=== PATIENT | male | born 1945 | race Caucasian/White ===

== ENCOUNTER 2018-12-01 11:01 | Emergency (ER) | payer MEDICARE, OTHER ==
[2018-12-01] MEDS ORDERED: Albuterol/Ipratropium 3.0-0.5 MG/3 ML Neb Soln NEB ONE (11:39)
--- NOTE | 2018-12-01 11:45 | EDM.PDOC ---
ED HPI GENERAL MEDICAL PROBLEM - General Chief Complaint: Respiratory Problem Stated Complaint: BREATHING ISSSUE COUGHING Time Seen by Provider: 12/01/18 11:35 Source of Information: Reports: Patient, Old Records, RN History Limitations: Reports: No Limitations - History of Present Illness INITIAL COMMENTS - FREE TEXT/NARRATIVE: 73 yo male here with a productive cough and mild increase in SOB. Does have COPD. Had a low grade fever earlier, not today. Sputum is colored. Did have all the appropriate vaccines. Onset: Gradual Onset Date: 11/27/18 Duration: Day(s):, Waxing/Waning Location: Reports: Chest Quality: Reports: Other (no pain) Severity: Moderate Improves with: Reports: Rest Worsens with: Reports: Movement (exertion) Context: Reports: Other (See HPI) Associated Symptoms: Reports: Cough, Fever/Chills (better now), Shortness of Breath. 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 Denies: Pleuritic Chest Pain, Hemoptysis Cardiovascular: Reports: No Symptoms Endocrine: Reports: No Symptoms GI/Abdominal: Reports: No Symptoms : Reports: No Symptoms Musculoskeletal: Reports: No Symptoms Skin: Reports: No Symptoms Neurological: Reports: No Symptoms Psychiatric: Reports: No Symptoms ED EXAM, GENERAL - Physical Exam Exam: See Below Exam Limited By: No Limitations General Appearance: Alert, WD/WN, No Apparent Distress Eye Exam: Bilateral Eye: Normal Inspection Ears: Normal External Exam, Normal Canal, Hearing Grossly Normal, Normal TMs Ear Exam: Bilateral Ear: Auricle Normal, Canal Normal, TM normal Nose: Normal Inspection, Normal Mucosa, No Blood Throat/Mouth: Normal Inspection, Normal Lips, Normal Teeth, Normal Oropharynx, Normal Voice Head: Atraumatic, Normocephalic Neck: Normal Inspection, Supple, Non-Tender Respiratory/Chest: No Respiratory Distress, No Accessory Muscle Use, Decreased Breath Sounds, Rhonchi, Wheezing Cardiovascular: Regular Rate, Rhythm, No Edema Back Exam: Normal Inspection Extremities: Normal Inspection, Normal Range of Motion, Non-Tender, No Pedal Edema Neurological: Alert, Oriented, CN II-XII Intact, Normal Cognition, No Motor/ Sensory Deficits Psychiatric: Normal Affect, Normal Mood Skin Exam: Warm, Dry, Intact, Normal Color, No Rash Course - Vital Signs Text/Narrative:: Minimal improvement with Duoneb Last Recorded V/S: Last Vital Signs Temp 36.8 C 12/01/18 11:30 Pulse 115 H 12/01/18 11:30 Resp 12 12/01/18 11:30 BP 123/73 12/01/18 11:30 Pulse Ox 96 12/01/18 11:30 - Orders/Labs/Meds Orders: Active Orders 24 hr Category Date Time Status RT Aerosol Therapy [RC] ASDIRECTED Care 12/01/18 11:39 Active Chest 2V [CR] Stat Exams 12/01/18 11:39 Taken Labs: Laboratory Tests 12/01/18 12/01/18 Range/Units 11:49 11:49 WBC 6.1 (4.5-11.0) K/uL RBC 3.98 L (4.30-5.90) M/uL Hgb 13.0 (12.0-15.0) g/dL Hct 36.4 L (40.0-54.0) % MCV 92 (80-98) fL MCH 33 H (27-31) pg MCHC 36 (32-36) % Plt Count 190 (150-400) K/uL Lactic Acid 1.8 (0.4-2.0) mmol/L Meds: Medications Discontinued Medications Generic Name Dose Route Start Last Admin Trade Name Freq PRN Reason Stop Dose Admin Albuterol/Ipratropium 3 ml 12/01/18 11:39 12/01/18 11:53 Duoneb 3.0-0.5 Mg/3 Ml NEB 12/01/18 11:40 3 ml ONETIME ONE Administration - Radiology Interpretation Free Text/Narrative:: CXR-emphysema Departure - Departure Time of Disposition: 12:20 Disposition: Home, Self-Care 01 Condition: Fair Clinical Impression: Bronchospasm, Bronchitis - Discharge Information *PRESCRIPTION DRUG MONITORING PROGRAM REVIEWED*: No *COPY OF PRESCRIPTION DRUG MONITORING REPORT IN PATIENT TORIE: No Instructions: Bronchospasm, Adult, [id number], Acute Bronchitis, Adult, Easy- to-Read Referrals: Junior Hollins MD [Primary Care Provider] - Forms: ED Department Discharge Additional Instructions: Take azithromycin as directed until gone, this med will remain in your system for 10 days. Take acetaminophen as needed for fever control. Take prednisone as directed until gone. See your provider for recheck in a few days. Return if worse. - My Orders Last 24 Hours: My Active Orders 12/01/18 11:39 RT Aerosol Therapy [RC] ASDIRECTED Chest 2V [CR] Stat - Assessment/Plan Last 24 Hours: My Active Orders 12/01/18 11:39 RT Aerosol Therapy [RC] ASDIRECTED Chest 2V [CR] Stat
--- NOTE | 2018-12-01 12:28 | CRLCR ---
Indication: Cough. Shortness of breath. Technique: PA and lateral views the chest were obtained. Comparison: January 11, 2014. Findings: The heart is normal in size. The lungs are hyperinflated. No infiltrate, pleural effusion, or pneumothorax is identified. Impression: Hyperinflation. Dictated by Joana Esteban MD @ Dec 01 2018 12:25PM Signed by Dr. Joana Esteban @ Dec 01 2018 12:25PM
== END 2018-12-01 12:50 | disposition home or self-care (01) ==
LOC: JP.ED 11:01
DX: J40 Bronchitis, not specified as acute or chronic (principal); Z79.899 Other long term (current) drug therapy
CPT/HCPCS: 36415; 71046; 83605; 85027; 94640; 99284-25; J7620-GY

== ENCOUNTER 2019-10-21 09:18 | Inpatient (IN) | payer MEDICARE ==
[2019-10-21] MEDS ORDERED: Sodium Chloride 0.9% 1,000 ML IV SCH (09:45)
[2019-10-21] MEDS ORDERED: Midazolam 1 MG/ML 2 ML SDV ONE (10:40)
[2019-10-21] MEDS ORDERED: fentaNYL 100 MCG/2 ML SDV ONE (10:40)
[2019-10-21] MEDS ORDERED: Propofol 200 MG/20 ML SDV ONE ×2 (10:41→12:21)
--- NOTE | 2019-10-21 14:04 | PCM.HP.2 ---
H&P History of Present Illness - General Date of Service: 10/21/19 Admit Problem/Dx: Admission Diagnosis/Problem Admission Diagnosis/Problem Mass Source of Information: Patient, Family, RN Notes Reviewed History Limitations: Reports: No Limitations - History of Present Illness Initial Comments - Free Text/Narative: Mr. Infante is a 74-year-old gentleman who was admitted as a direct admission from same-day surgery for management of a sigmoid colon mass. He has a history of previous colon polyps and was noted to have recent blood in his stool. Colonoscopy was scheduled which he underwent earlier today. On colonoscopy was found to have a sigmoid mass suspicious for a very large polyp versus malignancy. The mass was broad-based and not amenable to removal by snare or biopsy. This was reviewed by Dr. Estrada who is recommended that the patient be admitted to undergo sigmoid colon resection. Results were reviewed with the patient and his and he would like to proceed with surgical resection. He does have known COPD but does not require supplemental oxygen. No recent symptoms of chest pain or pressure or increased shortness of breath. No recent fevers chills sweats or other significant symptoms. He has had previous surgery with general anesthetic and denies any history of adverse reaction to general anesthesia or family history of adverse reaction to general anesthetic. He denies any history of deep vein thrombosis pulmonary embolism or bleeding abnormalities. - Related Data Allergies/Adverse Reactions: Allergies Allergy/AdvReac Type Severity Reaction Status Date / Time No Known Allergies Allergy Verified 10/21/19 09:41 Home Medications: Home Meds Albuterol [Proventil HFA] 2 puff INH Q4H PRN 01/11/14 [History] Fluticasone/Vilanterol [Breo Ellipta 100-25 MCG Inhalation Kit] 1 puff IH DAILY 12/01/18 [History] Albuterol [Proventil Neb Soln] 3 ml IH Q4H PRN 10/20/19 [History] Aspirin 325 mg PO DAILY PRN 10/20/19 [History] Ibuprofen 200 mg PO ASDIRECTED PRN 10/20/19 [History] SUMAtriptan [Imitrex] 50 mg PO DAILY PRN 10/20/19 [History] Vardenafil HCl [Levitra] 10 mg PO ASDIRECTED PRN 10/20/19 [History] Past Medical History HEENT History: Reports: Hard of Hearing, Other (See Below) Other HEENT History: wears glasses, "beginning of glaucoma" Respiratory History: Reports: Bronchitis, Recurrent, COPD, Pneumonia, Recurrent Gastrointestinal History: Reports: Colon Polyp Neurological History: Reports: Migraines - Infectious Disease History Infectious Disease History: Reports: Chicken Pox - Past Surgical History GI Surgical History: Reports: Colonoscopy, Hernia, Inguinal Social & Family History - Tobacco Use Smoking Status *Q: Former Smoker Years of Tobacco use: 40 Used Tobacco, but Quit: Yes Month/Year Tobacco Last Used: 10 years ago - Caffeine Use Caffeine Use: Reports: Coffee - Alcohol Use Days Per Week of Alcohol Use: 7 Number of Drinks Per Day: 2 Total Drinks Per Week: 14 - Recreational Drug Use Recreational Drug Use: No H&P Review of Systems - Review of Systems: Review Of Systems: See Below General: Reports: No Symptoms HEENT: Reports: No Symptoms Pulmonary: Reports: No Symptoms Cardiovascular: Reports: No Symptoms Gastrointestinal: Reports: Hematochezia. Denies: Abdominal Pain, Difficulty Swallowing, Distension, Melena, Nausea, Vomiting Genitourinary: Reports: No Symptoms Musculoskeletal: Reports: No Symptoms Skin: Reports: No Symptoms Psychiatric: Reports: No Symptoms Neurological: Reports: No Symptoms Hematologic/Lymphatic: Reports: No Symptoms Immunologic: Reports: No Symptoms Exam - Exam Exam: See Below - Vital Signs Vital Signs: Last Vital Signs Temp 96.8 F L 10/21/19 13:14 Pulse 80 10/21/19 13:24 Resp 16 10/21/19 13:24 BP 136/82 10/21/19 13:24 Pulse Ox 98 10/21/19 13:24 Weight: 139 lb 8 oz - Exam Quality Assessment: DVT Prophylaxis General: Alert, Oriented, Cooperative HEENT: Conjunctiva Clear, Hearing Intact, Mucosa Moist & [place], Normal Nasal Septum, Posterior Pharynx Clear, Pupils Equal Neck: Supple, Trachea Midline, +2 Carotid Pulse wo Bruit Lungs: Clear to Auscultation, Normal Respiratory Effort Cardiovascular: Regular Rate, Regular Rhythm, Normal S1, Normal S2. No: Systolic Murmur, Diastolic Murmur GI/Abdominal Exam: Soft, Non-Tender, No Organomegaly, No Distention Extremities: Non-Tender, No Pedal Edema Skin: Warm, Dry, Intact Neurological: Cranial Nerves Intact, Strength Equal Bilateral, Normal Speech, Normal Tone, Sensation Intact. No: Focal Deficit Neuro Extensive - Mental Status: Alert, Oriented x3, Normal Mood/Affect, Normal Cognition, Memory Intact Sepsis Event Note - Focused Exam Vital Signs: Vital Signs Temp Pulse Resp BP Pulse Ox 10/21/19 13:24 80 16 136/82 98 10/21/19 13:14 96.8 F L 84 16 144/86 H 100 10/21/19 13:10 84 16 144/90 H 100 10/21/19 13:04 81 16 155/94 H 100 10/21/19 12:59 81 16 140/96 H 100 10/21/19 12:50 97.0 F 81 14 145/89 H 100 10/21/19 10:10 98.4 F 60 18 134/73 96 Date Exam was Performed: 10/21/19 Time Exam was Performed: 13:57 *Q Meaningful Use (ADM) - VTE *Q VTE Pharmacological Contraindications *Q: Patient Scheduled Surgery - VTE Risk Assess *Q Each Risk Factor Represents 1 Point: Abnormal Pulmonary Function (COPD) Total Score 1 Point Risk Factors: 1 Each Risk Factor Represents 2 Points: Age 60 - 74 Years Total Score 2 Point Risk Factors: 2 Each Risk Factor Represents 3 Points: None Total Score 3 Point Risk Factors: 0 Each Risk Factor Represents 5 Points: None Total Score 5 Point Risk Factors: 0 Venous Thromboembolism Risk Factor Score *Q: 3 Problem List Initiated/Reviewed/Updated: Yes Orders Last 24hrs: Active Orders 24 hr Category Date Time Status Patient Status Manage Transfer [TRANSFER] Routine ADT 10/21/19 13:50 Ordered Sodium Chloride 0.9% [Normal Saline] 1,000 ml Med 10/21/19 09:45 Active IV ASDIRECTED Resuscitation Status Routine Resus Stat 10/21/19 13:53 Ordered Medication Orders Sodium Chloride (Normal Saline) 1,000 mls @ 100 mls/hr IV ASDIRECTED ARANZA Last Admin: 10/21/19 10:03 Dose: 100 mls/hr Assessment/Plan Comment:: ASSESSMENT AND PLAN SIGMOID COLON MASS-found on colonoscopy today, broad-based mass not amenable to snare cautery. Biopsies obtained and are pending at this time mass reviewed with Dr. Estrada at the time of colonoscopy was recommended surgical resection of the sigmoid colon for management. -Clear liquid diet -IV fluids for hydration -N.p.o. after midnight -Surgical management per Dr. Estrada COPD-stable with no evidence of acute exacerbation, does not use supplemental oxygen. -Continue outpatient inhaler and nebulizer therapy -Vigorous pulmonary toilet postoperatively MAINTENANCE ISSUES -DVT prophylaxis; SCUDs -GI prophylaxis; not indicated -Olsen catheter; not indicated -Nutrition; clear liquid diet, n.p.o. after midnight -Nicotine dependence; not required CODE STATUS-FULL CODE ADMISSION STATUS-patient will be admitted to inpatient status, expect at least a 2 night hospital stay for evaluation and management of problems as outlined above. At the time of this admission I do not reasonably expected evaluation and management of this problem will require more than a 96 hour hospital stay. DISPOSITION-anticipate discharge to home after the hospital stay. PRIMARY CARE PROVIDER-Dr. Hollins - Mortality Measure Prognosis:: Good
[2019-10-21] MEDS ORDERED: Dextrose 5%-Lactated Ringers 1,000 ML IV SCH (14:15)
[2019-10-21] MEDS ORDERED: Albuterol 0.083% 2.5 MG/3 ML Neb Soln INH PRN (14:28)
[2019-10-21] MEDS ORDERED: Albuterol 8 GM Inhaler INH PRN (14:28)
[2019-10-21] MEDS: Dextrose 5%-Lactated Ringers 1,000 ML IV SCH (14:36)
--- NOTE | 2019-10-21 15:06 | PROC ---
DATE OF PROCEDURE: 10/21/2019 SURGEON: Nacho Walsh MD PROCEDURE: Colonoscopy. PREPROCEDURE DIAGNOSES: 1. History of colon polyps. 2. Recent blood in stool. POSTPROCEDURE DIAGNOSES: 1. History of colon polyps. 2. Blood in stool. 3. Sigmoid mass with biopsies. 4. Sigmoid diverticulosis. DESCRIPTION OF PROCEDURE: Risks and goals of procedure reviewed with the patient. He gave informed consent to proceed. After IV was started and history reviewed, he was brought back to the endoscopy room. Sedation and monitoring provided by Richie Torres from the Anesthesia Service. A time-out was held prior to the procedure to confirm the right patient, right site, right procedure, as well as to identify any potential concerns, of which there were none. He was placed in a left lateral decubitus position. After adequate sedation was achieved, digital rectal exam was performed, which was unremarkable. Following this, a flexible colonoscope was placed and advanced through the colon to the cecum with some difficulty as the colon was noted to be extremely tortuous and long. Cecum was identified by the appendiceal orifice and the ileocecal valve. The scope was then slowly withdrawn through the length of the colon to the rectum where it was retroflexed, straightened, and removed. He was noted to have a several centimeter mass in the sigmoid colon, which was felt to be too broad-based and large to consider snare cautery. Biopsies were obtained. He was also noted to have fairly extensive sigmoid diverticulosis. Otherwise, there were no other significant mucosal polyps, masses, or lesions, and the procedure was, otherwise, completed without complication. Pathologic review of the biopsy specimens obtained during the procedure is pending at the time of this dictation. Nacho Walsh MD /[id number]
[2019-10-21] MEDS: Fluticasone-Salmeterol 113-14 MCG Powder Inhalant INH SCH (21:20)
[2019-10-22] MEDS: Dextrose 5%-Lactated Ringers 1,000 ML IV SCH ×4 (00:13→17:46)
[2019-10-22] MEDS: Fluticasone-Salmeterol 113-14 MCG Powder Inhalant INH SCH ×2 (07:33→22:38)
[2019-10-22] MEDS ORDERED: Acetaminophen 500 MG Tab PO ONE (08:30)
[2019-10-22] MEDS ORDERED: Non-Formulary Medication 1 Each (Fluticasone/Vilanterol 1 PUFF) IH SCH ×2 (09:00)
--- NOTE | 2019-10-22 10:25 | PN ---
DATE OF SERVICE: 10/22/2019 SUBJECTIVE: Trell is scheduled for left colon resection to follow this afternoon. Vital signs have been stable. He has been up ambulating. Denies any pain. REVIEW OF SYSTEMS: The remainder of review of systems negative for any pertinent positives and negatives. OBJECTIVE: GENERAL: Trell is a 74-year-old male. Alert and orientated. VITAL SIGNS: TPR is 98.1, 82, and 16; blood pressure 133/80. HEENT: Negative. NECK: Supple. HEART: Regular rate and rhythm. LUNGS: Clear. ABDOMEN: Soft and nontender. EXTREMITIES: Without peripheral edema. ASSESSMENT: Mass in the sigmoid colon. PLAN: Sigmoid colon resection. Case to follow this afternoon, César Estrada MD. After preoperative evaluation and discussion of the possible risks and possible complications by César Estrada MD, the patient wishes to proceed with surgical procedure. Velvet on-call to OR. Orders to be written postoperatively. Jadyn Mora PA-C /[id number]
[2019-10-22] MEDS ORDERED: fentaNYL 100 MCG/2 ML SDV ONE (12:42)
[2019-10-22] MEDS ORDERED: Neostigmine Methylsulfate 1 MG/ML 5 ML Syringe ONE (12:42)
[2019-10-22] MEDS ORDERED: Dexamethasone 4 MG/ML SDV ONE (12:42)
[2019-10-22] MEDS ORDERED: Propofol 200 MG/20 ML SDV ONE (12:42)
[2019-10-22] MEDS ORDERED: Glycopyrrolate 0.2 MG/ML 5 ML MDV ONE (12:42)
[2019-10-22] MEDS ORDERED: Rocuronium 50 MG/5 ML Vial ONE ×2 (12:42→14:37)
[2019-10-22] MEDS ORDERED: fentaNYL 250 MCG/5 ML SDV ONE (12:42)
[2019-10-22] MEDS ORDERED: Ondansetron 4 MG/2 ML SDV ONE (12:42)
[2019-10-22] MEDS ORDERED: Sodium Chloride 0.9% 10 ML ONE (12:44)
[2019-10-22] MEDS ORDERED: Bupivacaine 0.5% 50 ML MDV ONE (12:44)
[2019-10-22] MEDS ORDERED: Meropenem 500 MG SDV ONE (12:44)
[2019-10-22] MEDS ORDERED: Lidocaine 1% with EPINEPHrine 1:100,000 50 ML MDV ONE (12:44)
[2019-10-22] MEDS: cefOXitin 2 GM in Sodium Chloride 0.9% 50 ML IV ONE ×2 (13:19→14:55)
[2019-10-22] MEDS ORDERED: Albuterol/Ipratropium 3.0-0.5 MG/3 ML Neb Soln NEB ONE (13:30)
[2019-10-22] MEDS ORDERED: Midazolam 1 MG/ML 2 ML SDV ONE (13:37)
[2019-10-22] MEDS ORDERED: Sugammadex Sodium 200 MG/2 ML VIAL ONE (13:53)
[2019-10-22] MEDS ORDERED: Lactated Ringers 1,000 ML ONE (14:22)
[2019-10-22] MEDS ORDERED: Naloxone 0.4 MG/ML SDV IVPUSH PRN ×2 (14:30→17:11)
[2019-10-22] MEDS ORDERED: Acetaminophen 1,000 MG in Premix Bag 1 BAG IV ONE (16:14)
[2019-10-22] MEDS ORDERED: Albuterol 0.083% 2.5 MG/3 ML Neb Soln INH PRN ×2 (16:51)
[2019-10-22] MEDS ORDERED: hydrOXYzine HCL 100 MG/2 ML SDV IM PRN (17:06)
[2019-10-22] MEDS ORDERED: diphenhydrAMINE 50 MG/ML SDV IVPUSH PRN ×2 (17:11)
[2019-10-22] MEDS: fentaNYL 2,500 MCG in Sodium Chloride 0.9% 200 ML EPIDUR SCH (17:25)
[2019-10-22] MEDS: Naloxone 0.4 MG/ML SDV IV PRN (17:45)
[2019-10-22] MEDS: Acetaminophen 500 MG Tab PO SCH (18:37)
[2019-10-22] MEDS: Ondansetron 4 MG/2 ML SDV IV PRN ×2 (18:39→22:54)
[2019-10-22] MEDS: Metoclopramide 10 MG/2 ML SDV IVPUSH SCH (20:12)
[2019-10-22] MEDS: Pantoprazole 40 MG Vial IV SCH (20:17)
[2019-10-22] MEDS: cefOXitin 2 GM in Sodium Chloride 0.9% 50 ML IV SCH (20:22)
[2019-10-22] MEDS: Albuterol 0.083% 2.5 MG/3 ML Neb Soln INH SCH (22:38)
[2019-10-22] MEDS: Ibuprofen 600 MG Tab PO SCH (22:39)
[2019-10-22] MEDS: Tamsulosin 0.4 MG Cap.ER PO SCH (22:39)
[2019-10-23] MEDS: Acetaminophen 500 MG Tab PO SCH ×5 (00:16→23:58)
[2019-10-23] MEDS: Naloxone 0.4 MG/ML SDV IV PRN ×2 (01:11→08:00)
[2019-10-23] MEDS: Dextrose 5%-Lactated Ringers 1,000 ML IV SCH (01:11)
[2019-10-23] MEDS: Metoclopramide 10 MG/2 ML SDV IVPUSH SCH ×4 (01:13→19:35)
[2019-10-23] MEDS: cefOXitin 2 GM in Sodium Chloride 0.9% 50 ML IV SCH ×3 (01:19→14:59)
[2019-10-23] MEDS: Ibuprofen 600 MG Tab PO SCH ×4 (02:38→20:35)
[2019-10-23] MEDS ORDERED: Scopolamine 1.5 MG Transdermal Patch TRDERM PRN (06:59)
[2019-10-23] MEDS ORDERED: Dextrose 5%-Lactated Ringers 1,000 ML IV SCH (07:00)
[2019-10-23] MEDS: Albuterol 0.083% 2.5 MG/3 ML Neb Soln INH SCH ×4 (07:00→20:40)
[2019-10-23] MEDS: Fluticasone-Salmeterol 113-14 MCG Powder Inhalant INH SCH ×2 (07:00→20:35)
[2019-10-23] MEDS: Calcium Carbonate 500 MG Tab.Chew PO PRN ×3 (08:55→19:34)
[2019-10-23] MEDS ORDERED: Lactated Ringers 500 ML IV ONE ×3 (10:00→21:11)
[2019-10-23] MEDS: fentaNYL 2,500 MCG in Sodium Chloride 0.9% 200 ML EPIDUR SCH (10:17)
--- NOTE | 2019-10-23 11:02 | PN ---
DATE OF SERVICE: 10/23/2019 SUBJECTIVE: Trell is postoperative day 1. He has had nausea since surgery and has been given Zofran as well as Reglan. He thinks this morning it is better. Pain is controlled. Vital signs have been stable. Temperature max of 99.1. REVIEW OF SYSTEMS: The remainder of review of systems negative for any pertinent positives and negatives. OBJECTIVE: GENERAL: Trell Infante is a pleasant 74-year-old male. VITAL SIGNS: TPR at 0330 shows 97.8, 89, and 18; blood pressure 115/62, O2 saturations by pulse oximetry 98% on 1 L. HEENT: Negative. NECK: Supple. HEART: Regular rate and rhythm. LUNGS: Clear. ABDOMEN: Dressing is dry and intact. SHIREEN drain put out 120 mL of a light pink drainage. Olsen catheter in place, and output is 925. EXTREMITIES: SCDs are on, and no peripheral edema. ASSESSMENT: Exploratory laparotomy with lysis of adhesions. 1. Rectosigmoid resection with coloproctoscopy. 2. Appendectomy. 3. Repair of incarcerated umbilical hernia. 4. Mobilization of the omentum into pelvis for postoperative diagnoses of stricture of sigmoid colon associated with polypoid lesion and diverticulitis disease, appendix was caught up in pericolonic inflammation, and incarcerated umbilical hernia. Date of Surgery: 10/24/2019. Surgeon: César Estrada MD PLAN: 1. Scopolamine patch, place now and replace every 72 hours. 2. Decrease IV to 100 mL/hour. 3. Schedule has consent signed for delayed primary closure for 10/24/2019, with IV and local sedation with TAP block. Surgeon: César Estrada MD. NPO after midnight. Good pulmonary toilet. We will evaluate p.r.n. or in a.m. Jadyn Mora PA-C /[id number]
[2019-10-23] MEDS ORDERED: Lactated Ringers 500 ML IV SCH (14:00)
[2019-10-23] MEDS: Dextrose 5%-Lactated Ringers 1,000 ML with Naloxone 0.4 MG IV SCH ×2 (17:15)
[2019-10-23] MEDS: Pantoprazole 40 MG Vial IV SCH (19:35)
[2019-10-23] MEDS: Tamsulosin 0.4 MG Cap.ER PO SCH (20:35)
[2019-10-24] MEDS: Ibuprofen 600 MG Tab PO SCH ×4 (02:15→20:41)
[2019-10-24] MEDS: Metoclopramide 10 MG/2 ML SDV IVPUSH SCH ×4 (02:15→20:40)
[2019-10-24] MEDS: Dextrose 5%-Lactated Ringers 1,000 ML with Naloxone 0.4 MG IV SCH ×2 (03:36)
[2019-10-24] MEDS ORDERED: Lactated Ringers 500 ML IV ONE (03:45)
[2019-10-24] MEDS: Acetaminophen 500 MG Tab PO SCH ×4 (06:14→23:25)
[2019-10-24] MEDS ORDERED: Lidocaine 1% with EPINEPHrine 1:100,000 50 ML MDV ONE (06:35)
[2019-10-24] MEDS ORDERED: Meropenem 500 MG SDV ONE (06:35)
[2019-10-24] MEDS ORDERED: Bupivacaine 0.5% 50 ML MDV ONE (06:35)
[2019-10-24] MEDS ORDERED: Propofol 200 MG/20 ML SDV ONE (06:59)
[2019-10-24] MEDS ORDERED: fentaNYL 100 MCG/2 ML SDV ONE (06:59)
[2019-10-24] MEDS: Fluticasone-Salmeterol 113-14 MCG Powder Inhalant INH SCH ×2 (07:01→20:41)
[2019-10-24] MEDS: Albuterol 0.083% 2.5 MG/3 ML Neb Soln INH SCH ×4 (07:01→20:47)
[2019-10-24] MEDS ORDERED: Lactated Ringers 1,000 ML ONE (07:29)
[2019-10-24] MEDS: Dextrose 5%-Lactated Ringers 1,000 ML IV SCH ×2 (10:23→20:48)
[2019-10-24] MEDS: Docusate Sodium 100 MG Cap PO SCH ×2 (10:27→20:40)
[2019-10-24] MEDS: Bisacodyl 5 MG Tab PO SCH ×2 (10:27→20:40)
--- NOTE | 2019-10-24 11:08 | PN ---
DATE OF SERVICE: 10/24/2019 SUBJECTIVE: Trell is n.p.o. He will be having delayed primary closure today. Urine output has been marginal. He has received boluses of lactated Ringer's yesterday and oral intake was 1017. Total urine output via Olsen catheter was 717. SHIREEN drain put out 45 mL of a light pink drainage. REVIEW OF SYSTEMS: Remainder of review of systems negative for any pertinent positives and negatives. OBJECTIVE: GENERAL: Trell Infante is a 74-year-old male, alert, orientated. VITAL SIGNS: TPR 97.9, 103, 16. Blood pressure 173/69. HEENT: Negative. NECK: Supple. HEART: Regular rate and rhythm. LUNGS: Clear. ABDOMEN: Dressing is dry and intact. Abdominal binder is on. EXTREMITIES: Without peripheral edema. ASSESSMENT: Exploratory laparotomy with lysis of adhesions. 1. Rectosigmoid resection with coloproctostomy. 2. Appendectomy. 3. Repair of incarcerated umbilical hernia. 4. Mobilization of omentum into pelvis for postop diagnosis of stricture of sigmoid colon associated with polypoid lesion and diverticulitis disease. Appendix was caught up in the pericolonic inflammation and incarcerated umbilical hernia. Date of surgery, 10/24/2019. Surgeon, César Estrada MD. PLAN: Orders to be written postoperatively after delayed primary closure. We will evaluate p.r.n. or in a.m. Jadyn Mora PA-C /[id number]
[2019-10-24] MEDS: LORazepam 1 MG Tab PO SCH ×2 (12:18→17:37)
[2019-10-24] MEDS: Pantoprazole 40 MG Vial IV SCH (20:38)
[2019-10-24] MEDS: Tamsulosin 0.4 MG Cap.ER PO SCH (20:41)
[2019-10-24] MEDS: LORazepam 2 MG/ML SDV IVPUSH PRN ×2 (21:34→23:15)
[2019-10-24] MEDS: HYDROmorphone 2 MG Tab PO PRN (22:42)
[2019-10-25] MEDS: LORazepam 2 MG/ML SDV IVPUSH PRN ×3 (02:58→21:10)
[2019-10-25] MEDS: Metoclopramide 10 MG/2 ML SDV IVPUSH SCH ×4 (02:58→19:52)
[2019-10-25] MEDS: Ibuprofen 600 MG Tab PO SCH ×4 (02:59→20:07)
[2019-10-25] MEDS: Dextrose 5%-Lactated Ringers 1,000 ML IV SCH (05:48)
[2019-10-25] MEDS: Acetaminophen 500 MG Tab PO SCH ×3 (06:16→17:48)
[2019-10-25] MEDS: Albuterol 0.083% 2.5 MG/3 ML Neb Soln INH SCH ×4 (07:22→21:10)
[2019-10-25] MEDS: Fluticasone-Salmeterol 113-14 MCG Powder Inhalant INH SCH ×2 (07:24→20:07)
[2019-10-25] MEDS: Bisacodyl 5 MG Tab PO SCH ×2 (08:08→20:07)
[2019-10-25] MEDS: Docusate Sodium 100 MG Cap PO SCH ×2 (08:09→20:06)
[2019-10-25] MEDS ORDERED: Thiamine 200 MG in Sodium Chloride 0.9% 100 ML IV ONE (09:30)
[2019-10-25] MEDS ORDERED: Potassium Phosphates 20 MMOLE in Sodium Chloride 0.9% 250 ML IV SCH (10:00)
[2019-10-25] MEDS: MVI, Adult with Vitamin K 10 ML, Chromium/Copper/Mang/Selen/Zn 1 ML in Dextrose 5%-Lact... IV SCH ×3 (10:38)
[2019-10-25] MEDS: Magnesium Sulfate/Water 2 GM in Premix Bag 1 BAG IV SCH ×3 (11:48→21:10)
[2019-10-25] MEDS: Potassium Phos in 0.9 % NaCl 15 MMOL in Premix Bag 1 BAG IV SCH ×8 (11:54→18:24)
[2019-10-25] MEDS: HYDROmorphone 2 MG Tab PO PRN (15:57)
[2019-10-25] MEDS ORDERED: Furosemide 40 MG/4 ML VIAL IVPUSH ONE (16:09)
[2019-10-25] MEDS ORDERED: Albuterol/Ipratropium 3.0-0.5 MG/3 ML Neb Soln NEB ONE (16:13)
[2019-10-25] MEDS: LORazepam 1 MG Tab PO SCH ×2 (18:38→20:03)
[2019-10-25] MEDS: Pantoprazole 40 MG Vial IV SCH (19:46)
[2019-10-25] MEDS: Tamsulosin 0.4 MG Cap.ER PO SCH (20:07)
[2019-10-26] MEDS: Acetaminophen 500 MG Tab PO SCH ×3 (00:53→13:00)
[2019-10-26] MEDS: LORazepam 2 MG/ML SDV IVPUSH PRN ×7 (01:08→16:45)
[2019-10-26] MEDS: Metoclopramide 10 MG/2 ML SDV IVPUSH SCH ×4 (01:12→19:49)
[2019-10-26] MEDS: Ibuprofen 600 MG Tab PO SCH ×4 (03:11→20:12)
[2019-10-26] MEDS: Magnesium Sulfate/Water 2 GM in Premix Bag 1 BAG IV SCH ×4 (03:25→21:37)
[2019-10-26] MEDS ORDERED: Dextrose 5%-Lactated Ringers 1,000 ML IV SCH (07:30)
[2019-10-26] MEDS: Albuterol 0.083% 2.5 MG/3 ML Neb Soln INH SCH ×4 (07:40→20:11)
[2019-10-26] MEDS: Fluticasone-Salmeterol 113-14 MCG Powder Inhalant INH SCH ×2 (07:47→20:12)
[2019-10-26] MEDS: Potassium Phos in 0.9 % NaCl 15 MMOL in Premix Bag 1 BAG IV SCH ×4 (09:12→12:07)
[2019-10-26] MEDS: Docusate Sodium 100 MG Cap PO SCH ×2 (09:12→20:12)
[2019-10-26] MEDS: Thiamine 100 MG in Sodium Chloride 0.9% 100 ML IV SCH (09:47)
[2019-10-26] MEDS: Acetaminophen Soln 650 MG/20.3 ML UD Cup PO SCH ×2 (13:10→18:06)
[2019-10-26] MEDS ORDERED: Furosemide 20 MG/2 ML VIAL IVPUSH ONE (13:15)
[2019-10-26] MEDS: MVI, Adult with Vitamin K 10 ML, Chromium/Copper/Mang/Selen/Zn 1 ML in Dextrose 5%-Lact... IV SCH ×3 (14:17)
[2019-10-26] MEDS: Pantoprazole 40 MG Vial IV SCH (19:45)
[2019-10-26] MEDS: Tamsulosin 0.4 MG Cap.ER PO SCH (20:11)
[2019-10-27] MEDS: Acetaminophen Soln 650 MG/20.3 ML UD Cup PO SCH ×4 (00:53→17:48)
[2019-10-27] MEDS: Metoclopramide 10 MG/2 ML SDV IVPUSH SCH ×4 (01:56→21:02)
[2019-10-27] MEDS: Ibuprofen 600 MG Tab PO SCH ×4 (03:08→21:04)
[2019-10-27] MEDS: Magnesium Sulfate/Water 2 GM in Premix Bag 1 BAG IV SCH ×3 (03:26→16:58)
[2019-10-27] MEDS: Fluticasone-Salmeterol 113-14 MCG Powder Inhalant INH SCH ×2 (06:59→21:03)
[2019-10-27] MEDS: Albuterol 0.083% 2.5 MG/3 ML Neb Soln INH SCH ×4 (06:59→21:20)
[2019-10-27] MEDS: Thiamine 100 MG in Sodium Chloride 0.9% 100 ML IV SCH (08:37)
[2019-10-27] MEDS: Docusate Sodium 100 MG Cap PO SCH ×2 (09:27→21:04)
[2019-10-27] MEDS: MVI, Adult with Vitamin K 10 ML, Chromium/Copper/Mang/Selen/Zn 1 ML in Dextrose 5%-Lact... IV SCH ×3 (10:17)
--- NOTE | 2019-10-27 11:09 | PN ---
DATE OF SERVICE: 10/25/2019 Over the last 24 hours, the patient developed a fairly obvious alcohol withdrawal syndrome. He is receiving some thiamine as well as some MVI supplementation and some Ativan. We did instruct the to bring in something like Fabiola that he can take some shots, which would clear this problem, which would be better dealt with in a different setting and immediately postoperatively. Today, his potassium, phosphate, and magnesium are all low, and those will be supplemented today. He has not moved his bowels as of yet. Will continue the diet and bowel stimulation. Hopefully, with the administration of some oral alcohol, the withdrawal findings will stop and then the issues of the alcohol intake can be dealt with at a different somewhat safer setting. César Estrada MD /[id number]
--- NOTE | 2019-10-27 12:18 | PN ---
DATE OF SERVICE: 10/24/2019 The patient has been afebrile with stable vital signs. Nauseated yesterday, it has now cleared, and we will go up to a regular diet today. He is having the delayed primary closure of the abdominal incision this morning. Epidural catheter, Olsen catheter, and SHIREEN drain will all be removed. We will initiate bowel stimulation. Continue the ibuprofen and Tylenol with Dilaudid p.r.n. César Estrada MD /[id number]
--- NOTE | 2019-10-27 12:39 | PN ---
DATE OF SERVICE: 10/27/2019 The patient has been afebrile with stable vital signs. His mental status has now cleared and he has been essentially normal. We will transfer the patient to second floor today. He will likely be ready for discharge home tomorrow. We will watch him 1 more day to make sure that we do not have any problems with mental status issues from this point over the next 24 hours. César Estrada MD /[id number]
--- NOTE | 2019-10-27 13:42 | PN ---
DATE OF SERVICE: 10/26/2019 The patient developed more or less full-blown alcohol withdrawal at this point, then transferred to ICU to facilitate safer management. Otherwise, he has been stable. His bowels are moving, and we will back down on oral intake and give ice chips and some sips of clear liquid. Hemoglobin is 9.1, up from 8.6, we will give him 1 unit of packed RBCs today. Otherwise, we will continue the vitamin supplementation. Potassium is slightly low at 3.5, we will give him some potassium phosphate today. Otherwise, continue to manage the alcohol withdrawal with Ativan and the vitamin replacement. César Estrada MD /[id number]
[2019-10-27] MEDS: Pantoprazole 40 MG Vial IV SCH (21:01)
[2019-10-27] MEDS: Tamsulosin 0.4 MG Cap.ER PO SCH (21:04)
[2019-10-28] MEDS: Acetaminophen Soln 650 MG/20.3 ML UD Cup PO SCH ×3 (00:37→11:00)
[2019-10-28] MEDS: Ibuprofen 600 MG Tab PO SCH ×2 (03:50→08:34)
[2019-10-28] MEDS: Albuterol 0.083% 2.5 MG/3 ML Neb Soln INH SCH (07:36)
[2019-10-28] MEDS: Docusate Sodium 100 MG Cap PO SCH (08:33)
[2019-10-28] MEDS: Fluticasone-Salmeterol 113-14 MCG Powder Inhalant INH SCH (08:34)
[2019-10-28] MEDS: Pantoprazole 40 MG Vial IV SCH (08:52)
[2019-10-28] MEDS: Metoclopramide 10 MG/2 ML SDV IVPUSH SCH (08:52)
[2019-10-28] MEDS ORDERED: Dextrose 5%-Lactated Ringers 1,000 ML IV SCH (10:00)
--- NOTE | 2019-10-30 08:03 | DISCH ---
FINAL DIAGNOSIS: Polypoid mass with associated diverticulosis related to stricturing of sigmoid colon. SECONDARY DIAGNOSES: 1. Postoperative alcohol withdrawal. 2. Hypomagnesemia. 3. Hypophosphatemia. 4. History of bronchitis. 5. History of chronic obstructive pulmonary disease. OPERATIVE PROCEDURES: On 10/21/19, flexible colonoscopy with biopsies of sigmoid colon mass that was performed by Nacho Walsh MD., and then on 10/22/19, exploratory laparotomy with lysis of adhesions and; 1. Rectosigmoid resection with coloproctostomy. 2. Appendectomy. 3. Repair of incarcerated umbilical hernia. 4. Mobilization of omentum into pelvis. On 10/24/19, delayed primary closure of open abdominal incision. SUMMARY: This 74-year-old male presenting with some blood in the stool, as well as needing to strain to accomplish bowel movements. On the day of admission, the patient underwent a colonoscopy per Dr. Walsh, and at that point was noted to have an area of narrowing and a polypoid mass involving the mid sigmoid colon. Biopsies of these were obtained. Initial biopsies on this came back hyperplastic polyp. Next day, the patient underwent definitive sigmoid colon resection. The patient had quite a bit of inflammation related to diverticular disease and much of the narrowing appeared to be grossly related to stricturing and likely be related to diverticulitis in the past. The appendix was also caught up into that inflammatory process and appendectomy was currently performed as well. The patient had a small incarcerated umbilical hernia, which was also repaired. On postop day #2, the patient underwent a delayed primary closure of the abdominal incision. Over the next 2 to 3 days, the patient developed significant alcohol withdrawal problems, which did resolve spontaneously, and presently the patient's mental status is normal. He will be discharged home on Motrin and Tylenol as needed for pain, plus his additional usual medications. The final pathology on the resected specimens is pending. He will be following up with Dr. Estrada, [facility] on 11/05/2019.
--- NOTE | 2019-11-03 14:42 | CONS ---
DATE OF SERVICE: 10/21/2019 REFERRING PHYSICIAN: CONSULTING PHYSICIAN: César Estrada MD HISTORY: This is a 74-year-old who is referred for colonoscopy due to episodes of stool retention and having to strain to move his bowels. His last colonoscopy was more than 10 years ago. The patient underwent a colonoscopy today per Dr. Walsh and was found to have a large polypoid mass, which nearly obstructed the lumen with the scope being able to be just barely be passed through that area. The patient does have history of premalignant polyps being removed in the past, but has not had a colonoscopy for more than 10 years. The polyp was quite sessile and associated with quite a bit in the way of narrowing of the lumen and therefore a referral was made for consideration of resection. I did visualize the process during the colonoscopy per the request of Dr. Walsh. The plan therefore will be to admit the patient so as to avoid a re-do bowel prep and proceed with a sigmoid resection tomorrow. PAST MEDICAL HISTORY: The patient's past medical history includes significant emphysematous pulmonary disease. Otherwise, he has intermittent migraines. No previous abdominal surgeries have been undertaken. Examination shows the abdomen to be soft at this point, otherwise, unremarkable. IMPRESSION: A polypoid mass with high-grade narrowing of the mid-sigmoid colon. The plan will be to proceed with exploratory laparotomy with sigmoid resection tomorrow. This will be done with the plan to proceed with resection consistent with an oncologic approach with removal of large number of lymph nodes. Potential risks of the procedure including bleeding, infection, potential leak of the anastomosis which might require a temporary colostomy along with the possible need for additional treatment should a mid-stage or higher colon carcinoma be the final diagnosis, were all reviewed along with the remote possibility of cardiopulmonary, septic, or hemorrhagic complications leading to . The patient wishes to proceed. The patient will undergo the surgery tomorrow using the advance recovery protocol postoperatively. César Estrada MD /[id number]
--- NOTE | 2019-11-04 08:28 | OR ---
DATE OF PROCEDURE: 10/22/2019 SURGEON: César Estrada MD PREOPERATIVE DIAGNOSIS: Polypoid sessile mass of sigmoid colon. POSTOPERATIVE DIAGNOSES: 1. 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 2. Appendix caught up in pericolonic inflammation. 3. Incarcerated umbilical hernia. OPERATIVE PROCEDURE: Exploratory laparotomy with lysis of adhesions and: 1. Rectosigmoid resection with coloproctostomy (63612). 2. Appendectomy (00942). 3. Repair of incarcerated umbilical hernia (28296). 4. Mobilization of omentum into pelvis to displace small bowel from the pelvis and abdominal wall (63334). ANESTHESIA: General. [employer]: Jadyn Mora PA-C. INDICATIONS FOR PROCEDURE: This is a 74-year-old who presented with some episodes of stool retention and the need to strain to move his bowels. He underwent colonoscopy yesterday per Dr. Walsh, which showed a large polypoid lesion and narrowed lumen with the scope being able to just barely be passed beyond that. The more proximal colon was otherwise unremarkable, other than for a fairly extensive diverticulosis. Plan is to proceed with a rectosigmoid resection with primary anastomosis. Potential risks of the procedure including bleeding, infection, leaks from various GI tract closures with leak at the coloproctostomy potentially requiring a temporary colostomy, along with possibility of cardiopulmonary, septic, or hemorrhagic complications leading to were discussed. If a tumor of medium or advanced stage is encountered, the patient is aware that he may need additional postoperative chemo and/or radiation treatment. DETAILS OF PROCEDURE: The patient was taken to the operating room and placed in a supine position. After an epidural catheter had been placed, general endotracheal anesthesia was induced, and the patient was converted to a lithotomy position and Olsen catheter inserted. A midline incision from the umbilicus down to the level of pubis was made. The patient was noted to have an incarcerated umbilical hernia. Those contents were then excised and sent as a separate specimen. The hernia was subsequently repaired at the time of the abdominal wall closure. As one did exploration at this point, the patient was noted to have a palpable mass in the upper to mid sigmoid colon that was associated with quite a bit of intense inflammation around it, and it was felt that a portion of what was going on here is probably some consequences of diverticulitis in terms of stricturing at the area of the polyp. It was noted that the appendix was also incorporated within the inflammation at the level of bowel. Initially, an appendectomy was performed with division of appendix at its base with a HOLDEN stapler, and the area was then divided with a HOLDEN stapler as well. At this point, the proximal sigmoid colon was divided with the HOLDEN stapler. The mid rectum was then divided with a HOLDEN curved stapler. The underlying mesentery was then divided, maintaining a plane such that this would include ligation of the superior hemorrhoidal vessels relatively close to the aorta. The underlying lymph node package was then divided with HOLDEN olegario and the specimen delivered from the field. Off the field, it became evident that the patient's polyp was present, but there appeared to be somewhat dense fibrous stricturing at the level of the polyp as well, admitting the surgeon's small finger, but nothing larger than that. This would be indicative this stricture likely would be associated with some probable diverticulitis in the past. At this point, the divided sigmoid colon came down to the level of the divided rectum without tension. An anvil of a 28 mm EEA stapler was then passed into the proximal sigmoid colon and that area then re-stapled, bringing the anvil out through the most dependent portion of the sigmoid colon, through the rectum, and the main body of the EEA stapler was brought up with the anvil and a coloproctostomy was accomplished. Good double donuts of mucosa were noted within the stapler upon its withdrawal. The anastomosis was then tested with colonoscope injecting air into the area, and the bowel was submerged with antibiotic- containing saline solution. Anastomosis was visually intact, and no air bubbles were seen. The scope was then withdrawn. The coloproctostomy was then reinforced with some 3-0 Vicryl seromuscular stitch and fibrin sealant. Jaskaran-Summers drain was taken out through the right mid abdomen and positioned adjacent to the coloproctostomy, from there into the depths of the pelvis. The omentum was then mobilized downward in the event that the patient might require radiation treatment later, and this was secured to the area posterior to the bladder with some 3-0 Vicryl stitch. The posterior peritoneum from just below the umbilicus down to the pubis was then closed initially with #2 Vicryl stitch. The main fascia was then closed with #2 Vicryl stitch, which included repair of the umbilical hernia, and the skin and subcutaneous tissues were then packed open for a planned delayed primary closure in 48 hours. The patient was taken to the recovery room in satisfactory condition. Physician medical technician assistant, Jadyn Mora, played an essential role in assisting in this case, helping to position the patient, retract structures as needed, as well as suturing and cutting sutures when indicated. Her presence improved patient safety and decreased operative time. César Estrada MD /[id number]
--- NOTE | 2019-11-04 08:34 | OR ---
DATE OF PROCEDURE: 10/24/2019 SURGEON: César Estrada MD PREOPERATIVE DIAGNOSIS: Open abdominal incision. POSTOPERATIVE DIAGNOSIS: Open abdominal incision. OPERATIVE PROCEDURE: Delayed primary closure of open abdominal incision. ANESTHESIA: Local plus IV sedation. INDICATION FOR PROCEDURE: The patient is 48 hours status post a left colectomy, and at the time of the original procedure, the skin and subcutaneous tissue were left open to avoid risk of wound infection. The plan is to proceed with a delayed primary closure at this time. Potential risks including bleeding and infection were reviewed, and the patient wishes to proceed. DETAILS OF PROCEDURE: The patient was taken to the operating room and placed in a semi- sitting position to limit aspiration risk. The patient was given IV sedation, after which the operative dressing was taken down and found to be clean. The area was then prepped and draped and anesthetized with 1% lidocaine mixed with Marcaine. Using ultrasound guidance, bilateral subcostal transversus abdominis plane blocks were placed and the abdomen was irrigated with meropenem-containing saline solution. The incision was then closed with some 3-0 and 4-0 Vicryl stitch deep and olegario for the skin. Dressing was applied. There were no evident complications. César Estrada MD /[id number]
== END 2019-10-28 11:15 | disposition home or self-care (01) | DRG 330 ==
LOC: JP.SDS 09:18 → JP.SDSSCHI 09:18 → EDSTATUS 12:30 → JP.MS 14:28 → JP.ICU 10-25 19:34 → JP.MS 10-27 13:48
PROVIDERS: ADMIT Hospitalist; ATTEND Hospitalist
PROC: 0DBN8ZX Excision of Sigmoid Colon, Via Natural or Artificial Opening Endoscopic, Diagnostic (ICD-10-PCS; principal; 2019-10-21)
PROC: 0DBN0ZZ Excision of Sigmoid Colon, Open Approach (ICD-10-PCS; 2019-10-22)
PROC: 0DBP0ZZ Excision of Rectum, Open Approach (ICD-10-PCS; 2019-10-22)
PROC: 0DTJ0ZZ Resection of Appendix, Open Approach (ICD-10-PCS; 2019-10-22)
PROC: 0WQF0ZZ Repair Abdominal Wall, Open Approach (ICD-10-PCS; 2019-10-22)
PROC: 30233N1 Transfusion of Nonautologous Red Blood Cells into Peripheral Vein, Percutaneous Approach (ICD-10-PCS; 2019-10-26)
DX: K63.89 Other specified diseases of intestine (principal); K42.0 Umbilical hernia with obstruction, without gangrene; F10.239 Alcohol dependence with withdrawal, unspecified; E83.42 Hypomagnesemia; E83.39 Other disorders of phosphorus metabolism; K57.30 Diverticulosis of large intestine without perforation or abscess without bleeding; R41.82 Altered mental status, unspecified; J44.9 Chronic obstructive pulmonary disease, unspecified; Z79.82 Long term (current) use of aspirin; Z79.899 Other long term (current) drug therapy; Z87.891 Personal history of nicotine dependence
CPT/HCPCS: 36415; 36430; 80053; 82378; 83735; 84100; 85025; 85027; 86850; 86900; 86901; 86920; 86922; 88302; 88304; 88305; 88307; 94640; 94762; A9270-GY; C9113; J0131; J0171; J0694; J1100; J1940; J2060; J2185; J2250; J2310; J2405; J2704; J2710; J2765; J2795; J3010; J3411; J3475; J3490; J7030; J7050; J7120; J7121; J7620-GY; P9016